=== PATIENT | male | born 1980 | race Caucasian/White ===

== ENCOUNTER 2017-10-05 19:45 | Emergency (ER) | payer SELFPAY ==
[~2017-10-05] VITALS: Ht 175.3 cm; Wt 158.8 kg
[2017-10-05 19:48] VITALS: BP 176/90
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
[2017-10-05] MEDS ORDERED: HYDROCODONE/APAP 10/325MG 1 EA TABLET PO ONE (21:00)
[2017-10-05] MEDS ORDERED: ONDANSETRON 4 MG TAB.RAPDIS SL ONE (21:00)
[2017-10-05] MEDS ORDERED: ONDANSETRON 4 MG TAB.RAPDIS ONE (21:32)
[2017-10-05] MEDS ORDERED: HYDROCODONE/APAP 10/325MG 1 EA TABLET ONE (21:32)
--- NOTE | 2017-10-05 21:50 | NUR ---
PT REFUSED PAIN MEDICATIONS AND STATES "PERCOCET WORKS BETTER FOR ME". MD MADE AWARE. MD CHANGING ORDER.
[2017-10-05] MEDS ORDERED: oxyCODONE/APAP (5/325 MG) 1 UDTAB TABLET ONE (21:57)
[2017-10-05] MEDS ORDERED: oxyCODONE/APAP (5/325 MG) 1 UDTAB TABLET PO ONE (22:00)
--- NOTE | 2017-10-05 22:05 | NUR ---
PT REFUSED ZOFRAN AND STATES "I DONT NEED IT". MADE AWARE.
== END 2017-10-05 22:07 | disposition home or self-care (01) ==
LOC: ER 19:49
DX: M25.551 Pain in right hip (principal); E11.9 Type 2 diabetes mellitus without complications; I10 Essential (primary) hypertension; E66.01 Morbid (severe) obesity due to excess calories
CPT/HCPCS: 73502; 73551; 99284; A4606; Z7610; 73552; Q0162